=== PATIENT | female | born 1950 | race Caucasian/White ===

== ENCOUNTER 2016-08-30 16:12 | Emergency (ER) | payer BC ==
[~2016-08-30] VITALS: Wt 85.0 kg
[~2016-08-30 16:12] MED LIST: BEN50 PO; BENZ2TAB37 PO; CLON2TAB15 PO; LEVO88TA36 PO; LISI5TAB PO; PARO40TA79 PO; RISP4TAB38 PO
--- NOTE | 2016-08-30 21:26 | ERA ---
ER Documentation Chief Complaint Date/Time DATE: 08/30/16 TIME: 21:25 Chief Complaint Abdominal pain HPI The patient is a 65-year-old female, presenting to the ER because of intermittent epigastric abdominal pain, associated with intermittent vomiting, intermittent dizziness, intermittent headache. She was seen by her physician today who sent her to the ER. She also complains of nasal congestion, sore throat, intermittent cough, constipation, dysuria. She denies any neck pain, chest pain, dyspnea. She has not been eating well and does not vomit today. She does not smoke nor drink Past medical history: Hypothyroidism, depression, hypertension, schizophrenia, hiatal hernia, gastritis, essential tremor Past surgical history: Right knee arthroscopy and inguinal herniorrhaphy ROS All systems reviewed and are negative except as per history of present illness. Medications Home Meds Active Scripts Sulfamethoxazole-Trimethoprim* (Bactrim* DS) 800-160 Mg Tab, 1 TAB PO BID for 7 Days, TAB Prov:TEMO STOKES MD 08/30/16 Pantoprazole* (Protonix*) 40 Mg Tablet.dr, 40 MG PO DAILY, #20 TAB Prov:TEMO STOKES MD 08/30/16 Reported Medications Risperidone* (Risperidone*) 3 Mg Tablet, 3 MG PO BID, TAB 08/30/16 Levothyroxine Sodium* (Levothyroxine Sodium*) 100 Mcg Tablet, 100 MCG PO BEFORE BREAKFAST, #30 TAB 08/30/16 Benztropine Mesylate* (Benztropine Mesylate*) 2 Mg Tablet, 2 MG PO BID, TAB 08/30/16 Discontinued Reported Medications Risperidone* (Risperdal*) 4 Mg Tablet, 1 TAB PO BID 09/16/11 Clonazepam (Klonopin) 2 Mg Tablet, 1 TAB PO HS 09/16/11 Benztropine Mesylate* (Benztropine Mesylate*) 2 Mg Tablet, 1 TAB PO BID 09/16/11 Diphenhydramine Hcl* (Benadryl*) 50 Mg Cap, 1 TAB PO HS 09/16/11 Paroxetine Hcl* (Paroxetine*) 40 Mg Tablet, 1 TAB PO DAILY 09/16/11 Levothyroxine Sodium (Levothroid) 88 Mcg Tablet, 1 TAB PO DAILY 09/16/11 Lisinopril* (Prinivil*) 5 Mg Tablet, 5 MG PO DAILY 09/16/11 Allergies Allergies: Coded Allergies: No Known Allergy (Unverified , 08/30/16) PMhx/Soc History of Surgery: Yes (Lt knee sx, inguinal hernia repair) Anesthesia Reaction: No Hx Neurological Disorder: No Hx Respiratory Disorders: No Hx Cardiac Disorders: No Hx Psychiatric Problems: No Hx Miscellaneous Medical Probl: Yes (hypothyroidism) Hx Alcohol Use: No Hx Substance Use: No Hx Tobacco Use: No Smoking Status: Never smoker Physical Exam Vitals Vital Signs Date Time Temp Pulse Resp B/P Pulse Ox O2 Delivery O2 Flow Rate FiO2 08/30/16 21:19 70 17 154/115 98 Room Air 08/30/16 16:24 98.8 73 20 170/90 98 08/30/16 16:20 98.9 105 22 98 Physical Exam Const: No acute distress. Head: Atraumatic. Eyes: Normal Conjunctiva. ENT: Normal External Ears, Nose and Mouth. Neck: Full range of motion. No meningismus. Resp: Clear to auscultation bilaterally. Cardio: Regular rate and rhythm, no murmurs. Abd: Soft, non distended, normal bowel sounds, mild epigastric abdominal tenderness, no right lower quadrant, right upper quadrant, rigidity, rebound, CVA tenderness Skin: No petechiae or rashes. Back: No midline or flank tenderness. Ext: No cyanosis, or edema. Neur: Awake and alert. No focal deficit Psych: Normal Mood and Affect. Result Diagram: 08/30/16215408/30/162154 Results 24 hrs Laboratory Tests Test 08/30/16 21:55 08/30/16 23:17 Activated Partial Thromboplast Time 28.6Sec Alanine Aminotransferase (ALT/SGPT) 24IU/L Albumin 4.4g/dl Albumin/Globulin Ratio 1.22 Alkaline Phosphatase 94IU/L Anion Gap 19 Aspartate Amino Transf (AST/SGOT) 28IU/L Basophils # 0.010^3/ul Basophils % 0.2% Blood Urea Nitrogen 16mg/dl Calcium Level 9.4mg/dl Carbon Dioxide Level 26mmol/L Chloride Level 101mmol/L Creatinine 0.70mg/dl Direct Bilirubin 0.00mg/dl Eosinophils # 0.010^3/ul Eosinophils % 0.3% Globulin 3.60g/dl Glucose Level 93mg/dl Hematocrit 40.3% Hemoglobin 13.7g/dl INR International Normalized Ratio 0.99 Indirect Bilirubin 0.4mg/dl Lipase 93U/L Lymphocytes # 2.010^3/ul Lymphocytes % 20.2% Mean Corpuscular Hemoglobin 30.4pg Mean Corpuscular Hemoglobin Concent 33.9g/dl Mean Corpuscular Volume 89.5fl Mean Platelet Volume 8.9fl Monocytes # 1.010^3/ul Monocytes % 9.8% Neutrophils # 6.910^3/ul Neutrophils % 69.5% Nucleated Red Blood Cells # 0.010^3/ul Nucleated Red Blood Cells % 0.0/100WBC Platelet Count 69368^3/UL Potassium Level 3.8mmol/L Prothrombin Time 13.1Sec Prothrombin Time Ratio 1.0 Red Blood Count 4.5010^6/ul Red Cell Distribution Width 13.8% Sodium Level 142mmol/L Total Bilirubin 0.4mg/dl Total Protein 8.0g/dl White Blood Count 9.910^3/ul Bedside Urine Blood Negative Bedside Urine Glucose (UA) Negative Bedside Urine Ketones (LAB) 1+ Bedside Urine Leukocyte Esterase (L 1+ Bedside Urine Nitrite (LAB) Negative Bedside Urine Protein (LAB) Negative Bedside Urine pH (LAB) 6.0 Current Medications Medications (Trade) Dose Ordered Sig/George Route PRN Reason Start Time Stop Time Status Last Admin Dose Admin Pantoprazole (Protonix Iv) 40 mg ONCE ONCE IV 08/30/16 21:30 08/30/16 21:31 DC 08/30/16 22:13 IV Flush 10 ml 10 ml STK-MED ONCE .ROUTE 08/30/16 22:38 08/30/16 22:39 DC 08/30/16 22:54 Sodium Chloride (NS) 100 ml @ ud STK-MED ONCE .ROUTE 08/30/16 22:38 08/30/16 22:39 DC 08/30/16 22:54 Iohexol (Omnipaque 300mg/ ml) 150 ml STK-MED ONCE .ROUTE 08/30/16 22:38 08/30/16 22:39 DC 08/30/16 22:54 Procedures/[place] [id number] Radiology Main Line: [phone] DIAGNOSTIC IMAGING REPORT Patient: PHOENIX ARENAS : 1950 Age: 65 Sex: F [id number] DOS: 08/30/162126 Ordering MD: TEMO STOKES MD Location: E/R Room/Bed: PROCEDURE: CT Abdomen and pelvis with contrast. CLINICAL INDICATION: Abdominal pain. TECHNIQUE: CT scan of the abdomen and pelvis with contrast was performed on a multi-detector high-resolution CT scanner. The patient was scanned following the uncomplicated intravenous administration of 100 cc of Omnipaque 300. Coronal and sagittal reformatted images were obtained from the axial source images. Images were reviewed on a high-resolution PACS workstation. One or more of the following dose reduction techniques were used: - Automated exposure control. - Adjustment of the mA and/or kV according to patient size. - Use of iterative reconstruction technique. Exam CTD/vol = 15.84 mGy. Total exam DLP = 868.30 mGy-cm. COMPARISON: None. FINDINGS: Evaluation of the lung bases demonstrates mild bibasilar atelectasis. There is a trace pericardial effusion. There is a small hiatal hernia. Abdomen: The liver is normal in size. There is no focal mass or dilatation of the biliary tree. The gallbladder is not distended. The spleen, pancreas and bilateral adrenal glands are within normal limits. Bilateral kidneys are normal in size with symmetric enhancement. There are small left renal cysts. There is no hydronephrosis or hydroureter. There is no retroperitoneal adenopathy. The abdominal aorta is of normal caliber with mild scattered atherosclerotic calcifications. There is no abnormal bowel wall thickening or distension. There is no bowel obstruction or free air. A normal appendix is identified. There is descending and sigmoid diverticulosis without evidence of diverticulitis. There is no ascites. Pelvis: There is mild thickening of the anterior bladder wall. The uterus and adnexa are within normal limits. There is no significant pelvic adenopathy or free fluid. Evaluation of the osseous structures demonstrates no suspicious lytic or blastic lesion. There are degenerative changes of the spine. IMPRESSION: Mild thickening of the anterior bladder wall could suggest cystitis. Clinical correlation is needed. Descending and sigmoid diverticulosis without evidence of diverticulitis. Mild bibasilar atelectasis. Trace pericardial effusion. Small hiatal hernia. Vascular calcifications reflective of atherosclerosis. .Maikol Dick MD, Date Time Electronically viewed and signed by .Maikol Dick MD, on 08/30/2016 23:18 .T/ CC: TEMO STOKES MD MEDICAL MAKING DECISION: The patient is a 65-year-old female, presenting with acute epigastric abdominal pain, most likely due to chronic hiatal hernia and acute cystitis. She remains well in the emergency department. She was treated with Protonix IV with good response. The differential diagnoses considered include but are not limited to cholelithiasis, cholecystitis, cystitis, pancreatitis, hepatitis, gastritis, peptic ulcer disease, gastric ulcer, appendicitis, diverticulitis, cholangitis, choledocholithiasis, partial small bowel obstruction. Departure Diagnosis: Primary Impression: UTI (urinary tract infection) Additional Impression: Hiatal hernia Condition: Good Comments She was discharged with Protonix and Bactrim DS I discussed the findings with the patient. I advised the patient to follow-up with the primary physician in about 1-2 days, sooner if needed and return if any concern. TEMO STOKES MD Aug 30, 2016 21:26
[2016-08-30] MEDS ORDERED: PANTOPRAZOLE 40 MG INJ IV ONE (21:30)
[2016-08-30] MEDS ORDERED: RISP3TAB3 PO (21:47)
[2016-08-30] MEDS ORDERED: BENZ2TAB37 PO (21:47)
[2016-08-30] MEDS ORDERED: LEVO100T87 PO (21:47)
[2016-08-30 22:11] LABS: BASOPHILS % 0.2 % (0.0-2.0); EOSINOPHILS % 0.3 % (0.0-7.0); HEMATOCRIT 40.3 % (37.0-47.0); HEMOGLOBIN 13.7 g/dl (12.0-16.0); LYMPHOCYTES % 20.2 % (15.0-51.0); MEAN CORPUSCULAR HEMOGLOBIN 30.4 pg (29.0-33.0); MEAN CORPUSCULAR HGB CONC 33.9 g/dl (32.0-37.0); MEAN CORPUSCULAR VOLUME 89.5 fl (82.0-101.0); MEAN PLATELET VOLUME 8.9 fl (7.4-10.4); MONOCYTES % 9.8 % (0.0-11.0); NEUTROPHIL # 6.9 10^3/ul (1.6-7.5); NEUTROPHILS % 69.5 % (39.0-77.0); PLATELET COUNT 235 10^3/UL (140-440); RED CELL DISTRIBUTION WIDTH 13.8 % (11.5-14.5); UNCORRECTED WBC 9.9 10^3/ul (4.8-10.8); WHITE BLOOD COUNT 9.9 10^3/ul (4.8-10.8)
[2016-08-30 22:14] LABS: CONDITION 1
[2016-08-30 22:22] LABS: ALBUMIN 4.4 g/dl (3.3-4.9)
[2016-08-30 22:23] LABS: POTASSIUM 3.8 mmol/L (3.5-5.1)
[2016-08-30 22:25] LABS: BILIRUBIN,INDIRECT 0.4 mg/dl (0-1.1); BILIRUBIN,TOTAL 0.4 mg/dl (0.2-1.3); CREATININE 0.7 mg/dl (0.44-1.00); INR 0.99; PROTIME 13.1 Sec (12.2-14.2)
[2016-08-30 22:26] LABS: ALBUMIN/GLOBULIN RATIO 1.22; CALCIUM 9.4 mg/dl (8.4-10.2); PARTIAL THROMBOPLASTIN TIME 28.6 Sec (25.0-35.0)
[2016-08-30] MEDS ORDERED: SOD CHLORIDE 0.9% 100 ML ONE (22:38)
[2016-08-30] MEDS ORDERED: IOHEXOL 300MG/ML 150 ML BTL ONE (22:38)
[2016-08-30 23:16] LABS: URINE BLOOD (Dip) POC Negative (NEGATIVE)
--- NOTE | 2016-08-30 23:19 | RADRPT ---
PROCEDURE: CT Abdomen and pelvis with contrast. CLINICAL INDICATION: Abdominal pain. TECHNIQUE: CT scan of the abdomen and pelvis with contrast was performed on a multi-detector high -resolution CT scanner. The patient was scanned following the uncomplicated intravenous administrat ion of 100 cc of Omnipaque 300. Coronal and sagittal reformatted images were obtained from the axia l source images. Images were reviewed on a high-resolution PACS workstation. One or more of the following dose reduction techniques were used: - Automated exposure control. - Adjustment of the mA and/or kV according to patient size. - Use of iterative reconstruction technique. Exam CTD/vol = 15.84 mGy. Total exam DLP = 868.30 mGy-cm. COMPARISON: None. FINDINGS: Evaluation of the lung bases demonstrates mild bibasilar atelectasis. There is a trace pericardial effusion. There is a small hiatal hernia. Abdomen: The liver is normal in size. There is no focal mass or dilatation of the biliary tree. T he gallbladder is not distended. The spleen, pancreas and bilateral adrenal glands are within logan l limits. Bilateral kidneys are normal in size with symmetric enhancement. There are small left re nal cysts. There is no hydronephrosis or hydroureter. There is no retroperitoneal adenopathy. The abdominal aorta is of normal caliber with mild scattered atherosclerotic calcifications. There is no abnormal bowel wall thickening or distension. There is no bowel obstruction or free air . A normal appendix is identified. There is descending and sigmoid diverticulosis without evidence of diverticulitis. There is no ascites. Pelvis: There is mild thickening of the anterior bladder wall. The uterus and adnexa are within no rmal limits. There is no significant pelvic adenopathy or free fluid. Evaluation of the osseous structures demonstrates no suspicious lytic or blastic lesion. There are d egenerative changes of the spine. IMPRESSION: Mild thickening of the anterior bladder wall could suggest cystitis. Clinical correlation is needed . Descending and sigmoid diverticulosis without evidence of diverticulitis. Mild bibasilar atelectasis. Trace pericardial effusion. Small hiatal hernia. Vascular calcifications reflective of atherosclerosis. .Maikol Dick MD, Date Time Electronically viewed and signed by .Maikol Dick MD, MD on 08/30/2016 23:18 .T/
[2016-08-30] MEDS ORDERED: BACTDS PO (23:54)
[2016-08-30] MEDS ORDERED: PANT40TA3 PO (23:54)
[2016-08-31 00:31] VITALS: BP 165/83; PULSE 77; RESP 18; TEMP 98.6
== END 2016-08-31 00:31 | disposition home or self-care (01) ==
LOC: E/R 16:12
DX: N39.0 Urinary tract infection, site not specified (principal); K44.9 Diaphragmatic hernia without obstruction or gangrene; E03.9 Hypothyroidism, unspecified; I10 Essential (primary) hypertension; R40.2142 Coma scale, eyes open, spontaneous, at arrival to emergency department; R40.2252 Coma scale, best verbal response, oriented, at arrival to emergency department; R40.2362 Coma scale, best motor response, obeys commands, at arrival to emergency department
CPT/HCPCS: 74177; 80053; 81003; 83690; 85025; 85610; 85730; C9113; Q9967; Z7610; 36415; 96374

== ENCOUNTER 2018-09-21 11:40 | Emergency (ER) | payer BC ==
[~2018-09-21] VITALS: Ht 165.1 cm; Wt 82.2 kg
[~2018-09-21 11:40] MED LIST changes: +BACTDS PO; -BEN50 PO; -BENZ2TAB37 PO; +BENZ2TAB7 PO; -CLON2TAB15 PO; +LEVO100T8 PO; -LEVO88TA36 PO; -LISI5TAB PO; +PANT40TA3 PO; -PARO40TA79 PO; +RISP3TAB3 PO; -RISP4TAB38 PO
[2018-09-21 11:42] VITALS: BP 180/86; PULSE 70; RESP 19; Ht 165.1 cm; Wt 82.2 kg
--- NOTE | 2018-09-21 13:08 | ERD ---
ER Documentation Chief Complaint Chief Complaint cough,chest congestion and body pain x 1 week HPI 68-year old female presents the emergency department with her complaining of a cough, congestion and all over body pain for approximately 1 week. Patient states that she has had greenish sputum associated with a cough but no hemoptysis. She reports no shortness of breath or chest pain. She reports low- grade fever and myalgias. ROS All systems reviewed and are negative except as per history of present illness. Medications Home Meds Active Scripts Sulfamethoxazole-Trimethoprim* (Bactrim* DS) 800-160 Mg Tab, 1 TAB PO BID for 7 Days, TAB Prov:TEMO STOKES MD 08/30/16 Pantoprazole* (Protonix*) 40 Mg Tablet.dr, 40 MG PO DAILY, #20 TAB Prov:TEMO STOKES MD 08/30/16 Reported Medications Risperidone* (Risperidone*) 3 Mg Tablet, 3 MG PO BID, TAB 08/30/16 Levothyroxine Sodium* (Levothyroxine Sodium*) 100 Mcg Tablet, 100 MCG PO BEFORE BREAKFAST, #30 TAB 08/30/16 Benztropine Mesylate* (Benztropine Mesylate*) 2 Mg Tablet, 2 MG PO BID, TAB 08/30/16 Allergies Allergies: Coded Allergies: No Known Allergy (Unverified , 08/30/16) PMhx/Soc History of Surgery: Yes (Lt knee sx, inguinal hernia repair) Anesthesia Reaction: No Hx Neurological Disorder: No Hx Respiratory Disorders: No Hx Cardiac Disorders: No Hx Psychiatric Problems: No Hx Miscellaneous Medical Probl: Yes (hypothyroidism) Hx Alcohol Use: No Hx Substance Use: No Hx Tobacco Use: No Smoking Status: Never smoker Physical Exam Vitals Vital Signs Date Temp Pulse Resp B/P (MAP) Pulse Ox O2 O2 Flow FiO2 Time Delivery Rate 09/21/18 97.7 70 19 180/86 96 11:42 (117) Physical Exam GENERAL: The patient is well developed and appropriate for usual state of health in no apparent distress HEENT: Pupils equal, round, and reactive to light. EOMI. There is no scleral icterus. NECK: C-spine is soft and supple, there is no meningismus. There is no cervical lymphadenopathy. LUNGS: Clear to auscultation bilaterally. There are no rales, wheezes or rhonchi. HEART: Regular rate and rhythm, no murmurs, clicks, rubs or gallops. ABDOMEN: Soft, non-tender, non-distended. There are bowel sounds in all four quadrants. No rebound or guarding. EXTREMITIES: There is no peripheral cyanosis or edema. No focal swelling or erythema. NEURO: The patient moves all four extremities with 5/5 strength. Cranial nerves II - XII are intact. Normal gait. Alert and oriented. She has a resting tremor SKIN: There is no apparent rash or petechiae. HEME/LYMPHATIC: There is no evidence of excessive bruising or lymphedema. PSYCHIATRIC: The patient does not appear anxious or depressed. Procedures/MDM Patient was taken to a room, seen and examined Medical decision m[age]-year-old female presents the emergency department with what appears to be a bronchitis. Her x-ray does not demonstrate a significant pneumonia and she has no evidence of hypoxemia or respiratory distress. Given her advanced age and her other comorbid conditions including what appeared to be a parkinsonian type presentation as well as her psychiatric disease, I believe that she is at higher risk and will therefore be placed on antibiotics. However, she shows no evidence of respiratory distress and seems appropriate for outpatient care. Departure Diagnosis: Primary Impression: Bronchitis Condition: Stable Patient Instructions: Bronchitis, Antiobiotic Treatment (Adult) Additional Instructions: Please see your doctor if not improved in the next 3 days MICHAEL PERRY Sep 21, 2018 13:08
== END 2018-09-21 13:50 | disposition home or self-care (01) ==
LOC: FTE 11:40
DX: J40 Bronchitis, not specified as acute or chronic (principal); E03.9 Hypothyroidism, unspecified
CPT/HCPCS: 71045; Z7502